=== PATIENT | female | born 1945 | race Caucasian/White ===

== ENCOUNTER 2020-04-04 12:45 | Outpatient (CLI) | payer MEDICARE, SELFPAY ==
--- NOTE | ~2020-04-04 | DEXA_ITS ---
Bone Density Report Name: Carmencita Swanson Age: 74 Sex: Female Ethnicity: White Date of : 1945 Indication: osteopenia; height loss; Referring Provider: Richard Bailey Study: Bone densitometry was performed. Exam Date: April 04, 2020 Accession number: [id number] Bone Density: Region BMD T-score Z-score Classification AP Spine (L1, L2, L3) 0.813 -1.9 0.4 Osteopenia Femoral Neck (Left) 0.541 -2.8 -0.8 Osteoporosis Total Hip (Left) 0.695 -2.0 -0.3 Osteopenia Total Hip Bilateral Avg 0.674 -2.2 -0.5 Osteopenia Femoral Neck (Right) 0.554 -2.7 -0.7 Osteoporosis Total Hip (Right) 0.651 -2.4 -0.7 Osteopenia World Health Organization criteria for BMD impression classify patients as: Normal (T-score at or above -1.0), Osteopenia (T-score between -1.0 and -2.5), or Osteoporosis (T-score at or below -2.5). 10-year Fracture Risk: FRAX not reported because: Some T-score for Spine Total or Hip Total or Femoral Neck at or below -2.5 Previous Exams: Region Exam Age BMD T-score BMD Change BMD Change Date g/cm2 vs Baseline vs Previous AP Spine(L1, L2, L3) 04/04/2020 74 0.813 -1.9 0.028(3.5%)# 0.025(3.2%)* 03/05/2018 72 0.788 -2.1 0.003(0.4%)# 0.000(0.1%) 08/09/2014 68 0.787 -2.1 0.002(0.3%)# 0.010(1.3%)# 06/17/2012 66 0.778 -2.2 -0.007(-1.0%)# -0.007(-1.0%)# 05/15/2010 64 0.785 -2.1 Total Hip(Left) 04/04/2020 74 0.695 -2.0 0.002(0.3%)# -0.032(-4.4%)* 03/05/2018 72 0.727 -1.8 0.034(4.9%)# 0.009(1.3%) 08/09/2014 68 0.718 -1.8 0.025(3.6%)# 0.000(-0.1%)# 06/17/2012 66 0.718 -1.8 0.025(3.7%)# 0.025(3.7%)# 05/15/2010 64 0.693 -2.0 Total Hip(Right) 04/04/2020 74 0.651 -2.4 -0.067(-9.4%)# -0.118(-15.3%) 03/05/2018 72 0.769 -1.4 0.050(7.0%)# 0.035(4.8%)* 08/09/2014 68 0.733 -1.7 0.015(2.1%)# 0.002(0.3%)# 06/17/2012 66 0.731 -1.7 0.013(1.8%)# 0.013(1.8%)# 05/15/2010 64 0.718 -1.8 *Denotes significance at 95% confidence level, LSC for AP Spine = 0.022 g/cm2, LSC for Total Hip = 0.027 g/cm2 Clinical Information Provided by Patient: Has used the following medications: Vitamin D, Calcium Patient maximum height was 63 Menopause Age: 51 Does not regularly consume dairy products Onset of menses at age 19 Number of children 2 Impression: The patient has osteoporosis, based on the Left Femoral Neck T-score. The BMD for the Total Hip(Left) decr
== END 2020-04-04 12:46 | disposition home or self-care (01) ==
PROVIDERS: PCP Family Medicine; Visit Provider Family Medicine
DX: M81.0 Age-related osteoporosis without current pathological fracture (principal)
CPT/HCPCS: 77080

== ENCOUNTER 2020-12-25 07:52 | Outpatient (CLI) | payer MEDICARE, SELFPAY ==
--- NOTE | ~2020-12-25 | MM_ITS ---
EXAMINATION: MM screening mack BI w brenda HISTORY: Screening mammogram TECHNIQUE: Craniocaudal and mediolateral oblique 3-D tomosynthesis images were obtained and synthetic 2-D images were generated. CAD analysis was submitted and interpreted. COMPARISON: 10/08/2018, 09/29/2017, 08/26/2016, 08/13/2015 bilateral digital screening mammogram examinatio ns BREAST PARENCHYMAL COMPOSITION: There are scattered areas of fibroglandular density. FINDINGS: There is no evidence of suspicious mass, calcification, or architectural distortion to sugg est malignancy in either breast. There has been no suspicious interval change. IMPRESSION: 1. No mammographic evidence of malignancy. 2. Recommend routine screening mammography in one year. BI-RADS Category 1: Negative Reviewed, dictated and finalized at location A.
== END 2020-12-25 07:53 | disposition home or self-care (01) ==
LOC: ANHIMG 07:55
PROVIDERS: PCP Family Medicine; Visit Provider Family Medicine
DX: Z12.31 Encounter for screening mammogram for malignant neoplasm of breast (principal)
CPT/HCPCS: 77063; 77067

== ENCOUNTER → 2021-11-15 01:53 | Outpatient (CLI) | payer MEDICARE, SELFPAY ==
[2021-11-15 11:18] LABS: Influenza A QL RT-PCR Negative (Negative); Influenza B QL RT-PCR Negative (Negative); SARS-CoV-2 RNA PCR Negative
== END ==
PROVIDERS: PCP Physician Assistant; Visit Provider Physician Assistant
DX: R05.9 Cough, unspecified (principal); R68.89 Other general symptoms and signs; Z20.822 Contact with and (suspected) exposure to COVID-19
CPT/HCPCS: 87502; C9803; U0003; U0005

== ENCOUNTER 2023-01-01 12:14 | Outpatient (CLI) | payer MEDICARE, SELFPAY ==
--- NOTE | ~2023-01-01 | US_ITS ---
EXAMINATION: US soft tissue head and neck DATE: 01/01/2023 13:04 INDICATION: Right posterior neck mass TECHNIQUE: Multiple grayscale and Doppler ultrasound images of the region of concern at the posterior right neck were obtained. COMPARISON: None FINDINGS/IMPRESSION: Normal-sized 8 x 7 x 4 mm hypoechoic lymph node near the region of concern. No other abnormal masses or fluid collections identified. Reviewed, dictated and finalized at location A.
== END 2023-01-01 12:15 | disposition home or self-care (01) ==
PROVIDERS: PCP Family Medicine; Visit Provider Family Medicine
DX: R22.1 Localized swelling, mass and lump, neck (principal)
CPT/HCPCS: 76536

== ENCOUNTER 2025-02-09 08:35 | Outpatient (CLI) | payer MEDICARE, SELFPAY ==
--- NOTE | ~2025-02-09 | DEXA_ITS ---
Bone Density Report Name: EMILY CORLEY Age: 79 Sex: Female Ethnicity: White Date of : 1945 Indication: osteopenia; Referring Provider: DAISY BRUMFIELD Study: Bone densitometry was performed. Exam Date: February 09, 2025 Accession number: [id number] Bone Density: Region BMD T-score Z-score Classification AP Spine(L1-L4) 0.845 -1.8 0.8 Osteopenia Femoral Neck (Left) 0.515 -3.0 -0.8 Osteoporosis Total Hip (Left) 0.674 -2.2 -0.2 Osteopenia Femoral Neck (Right) 0.580 -2.4 -0.2 Osteopenia Total Hip (Right) 0.663 -2.3 -0.3 Osteopenia Total Hip Mean 0.669 -2.3 -0.3 Osteopenia World Health Organization criteria for BMD impression classify patients as: Normal (T-score at or above -1.0), Osteopenia (T-score between -1.0 and -2.5), or Osteoporosis (T-score at or below -2.5). 10-year Fracture Risk: FRAX not reported because: Some T-score for Spine Total or Hip Total or Femoral Neck at or below -2.5 Previous Exams: Region Exam Age BMD T-score BMD Change BMD Change Date g/cm2 vs Baseline vs Previous AP Spine (L1-L4) 02/09/2025 79 0.845 -1.8 0.049 (6.2%)# 0.018 (2.2%) 03/05/2018 72 0.827 -2.0 0.031 (3.9%)# 0.021 (2.6%) 08/09/2014 68 0.806 -2.2 0.010 (1.3%)# 0.010 (1.3%)# 06/17/2012 66 0.796 -2.3 Total Hip(Left) 02/09/2025 79 0.674 -2.2 -0.045 (-6.2%) -0.021 (-3.1%) 04/04/2020 74 0.695 -2.0 -0.023 (-3.3%) -0.032 (-4.4%) 03/05/2018 72 0.727 -1.8 0.009 (1.2%)# 0.009 (1.3%) 08/09/2014 68 0.718 -1.8 0.000 (-0.1%)# 0.000 (-0.1%)# 06/17/2012 66 0.718 -1.8 Total Hip(Right) 02/09/2025 79 0.663 -2.3 -0.068 (-9.3%) 0.012 (1.9%) 04/04/2020 74 0.651 -2.4 -0.080 (-11.0% -0.118 (-15.3% 03/05/2018 72 0.769 -1.4 0.037 (5.1%)# 0.035 (4.8%)* 08/09/2014 68 0.733 -1.7 0.002 (0.3%)# 0.002 (0.3%)# 06/17/2012 66 0.731 -1.7 *Denotes significance at 95% confidence level, LSC for AP Spine = 0.022 g/cm2, LSC for Total Hip = 0.027 g/cm2 # Denotes dissimilar scan types or analysis methods Clinical Information Provided by Patient: Has used the following medications: Vitamin D, Calcium Patient maximum height was 62 Menopause Age: 51 Onset of menses at age 19 Number of children 2 Impression: The patient has osteoporosis, based on the Left Femoral Neck T-score. No significant bone loss was observed. Discussion: INCREASED RISK OF FRACTURE. BONE DENSITY IS UNDESIRABLY LOW AT ONE OR MORE SKELETAL SITES, CONSISTENT WITH POSTMENOPAUSAL OSTEOPOROSIS. This patient's lowest T-score meets the World Health Organization's (WHO) criteria for osteoporosis at one or more sites (T-score -2.5 or below). In untreated patients, the risk of osteoporotic fracture increases approximately two-fold for each 1.0 SD decrease in T-score. Low bone density is not the only risk factor for fracture; also consider factors such as patient's age, frailty or poor health, risk of falling, risk of injury, previous osteoporotic fracture, family history of osteoporosis, cigarette smoking, low body weight, etc. Not everyone with low bone mineral density has osteoporosis; osteomalacia and other metabolic bone disorders should also be considered. Patients who have osteoporosis should be evaluated for specific diseases and conditions (secondary causes) that may cause or contribute to bone loss. The [place] Association [employer] Endocrinologists (AACE) and National Osteoporosis Foundation (NOF) recommend pharmacologic intervention for all postmenopausal women whose T-score is in this range. The patient should follow a healthful lifestyle (good nutrition with adequate calcium and vitamin D, and appropriate weight-bearing exercise). Follow-Up: Consider a repeat BMD and Vertebral Fracture Assessment (VFA) exam in 2 years or sooner if medically necessary, to reassess this patient's status. Reported by: JA on 02/09/2025 9:18:00 AM. Reviewed, dictated and finalized at location A.
--- NOTE | ~2025-02-09 | MM_ITS ---
EXAMINATION: MM screening mack BI w brenda HISTORY: Screening TECHNIQUE: Craniocaudal and mediolateral oblique 3-D tomosynthesis images were obtained and synthetic 2-D images were generated. CAD analysis was submitted and interpreted. COMPARISON: Comparison to multiple prior studies sequentially, with oldest reviewed study dated 08/26. BREAST PARENCHYMAL COMPOSITION: There are scattered areas of fibroglandular density. FINDINGS: There is no evidence of suspicious mass, calcification, or architectural distortion to sug gest malignancy in either breast. IMPRESSION: 1. No mammographic evidence of malignancy. 2. Recommend routine screening mammography in one year. BI-RADS Category 1: Negative Reviewed, dictated and finalized at location B.
--- OUTSIDE RECORDS SUMMARY | 2025-02-09 08:40 | XMS_ITS | Continuity of Care Document ---
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 Name Role Phone Felipe Kitchen MD Unavailable Unavailable Allergies, Adverse Reactions, Alerts Substance Reaction Status Criticality AMOXICILLIN TRIHYDRATE Other Active No In formation POTASSIUM CLAVULANATE Other Active No Inf ormation Medications Medication Instructions Dosage Effective Dates (start - stop) Status Comments vitamin A 10,000 unit capsule take 3 Capsule ([id number]) by oral route every day 96690 UNITS - Active Vitamin B Complex tablet take 1 a day - Active Vitamin C 500 mg tablet take 1 tablet daily - Active CALCIUM 500 + VIT D CAPLET 2 DAILY - Active OMEGA-3 1,000 MG SOFTGEL 2 DAILY - Active MULTIPLE VITAMIN PLAIN TAB 1 QD-daily - Active Advance Directives Directive Yes / No Effective Date File Name No Information Encounters Encounter Description Practice Location Reason(s) For Visit Diagnoses Date Provider Providers Copied on Encounter [facility], [address], [place], [place], [id number] , [place] tel: [phone] Mikey No Information 5 Imtiaz Wang. [address] [place], [place], [address], [place]. [phone] [facility], [address], [place], [place], [address] , [place] tel: [phone] Mikey Post-menopausal 5 Wiegjose j Gotti. [address] [place], [address], [place]. tel:[phone] [facility], [address], [place], [place], [address] , [place] tel: [phone] [place] Mass of right breast 4 Mishashi Gotti. [address] [place], [address], [place]. tel:[phone] [facility], [address], [place], [place], [address] , [place] tel: [phone] [place] Screening for malignant neoplasm of breast 4 Imtiaz Wang. [address], [place], [address], [place]. tel:[phone] [facility], [address], [place], [place], [address] , [place] tel: [phone] [place] Encounter for Medicare annual wellness examMIXED HYPERLIPIDEMIAMya lgia and myositisOsteopeni a 2 [facility] [address] [place], [address], [place]. tel:[phone] Referring Provider: Felipe Castillo, [address] [place], [address] . tel:[phone] [facility], [address], [place], [place], [address] , [place] tel: [phone] [place] ArthralgiaTick biteBite of nonvenomous arthropod 2 Mishashi Gotti. [address] [place], [address], [place]. tel:[phone] Referring Provider: Felipe Castillo, [address] [place], [address] . tel:[phone] [facility], [address], [place], [place], [address] , [place] tel: [phone] [place] Mixed hyperlipidemiaBON E & CARTILAGE DIS NOS 1 [facility] Mar[facility]. [address] [place], [address], [place]. tel:[phone] Referring Provider: Felipe Castillo, [address] [place], [address] . tel:[phone] [facility], [address], [place], [place], [address] , [place] tel: [phone] Conversion Department No Information 1 Conversion Doctor. [facility] [place], [address], [place]. [facility], [address], [place], [place], [address] , [place] tel: [phone] [place] MIXED HYPERLIPIDEMIALON G-TERM USE MEDS NEC 1 Imtiaz Wang. [address], [place], [address], [place]. 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 [address], [place], [address], [place]. tel:[phone] [facility], [address], [place], [place], [address] , [place] tel: [phone] [place] DVRTCLI COLON W/O HMRHGSCREEN MAL NEOP-RECTUM 6 Imtiaz Wang. [address], [place], [address], [place]. tel:[phone] [facility], [address], [place], [place], [address] , [place] tel: [phone] [place] THROAT PAINESOPHAGEAL REFLUX 0 4 Conversion Doctor. [facility] [place], [address], [place]. [facility], [address], [place], [place], [address] , [place] tel: [phone] [place] BURSITIS NEC 0-200 3 Imtiaz Wang. [address], [place], [address], [place]. [phone] [facility], [address], [place], [place], [address] , [place] tel: [phone] [place] ACUTE SINUSITIS NOS 0200 2 Conversion Doctor. [address] [facility], [place], [address], [place]. Family History Family Member Type Diagnosis Age At Onset Father Problem (finding) Cancer Payers Payer name Insurance type Covered libertarian ID Authoriza tion(s) [place]IC[place] [id number] [facility] [id number] Social History Type Description Quantity Date Captured Comments Alcohol Use Details Unknown Caffeine Use Details Unknown Tobacco Use Status No Information Smoking Status No Information Sex Female Chief Complaint And Reason For Visit No Information Reason For Referral Reason For Referral No Information History Of Present Illness Encounter Date Complaint History Of Prese nt Illness No Information Functional Status Date Functional Assessmen t No Information Instructions Date Instruction Additional Infor mation No Information Assessments Type Assessment Date No Information Patient Care Teams Name Effective Dates (start - stop) Status Members No Information
== END 2025-02-09 08:36 | disposition home or self-care (01) ==
LOC: ANHIMG 08:38
PROVIDERS: PCP Family Medicine; Visit Provider Family Medicine
DX: Z12.31 Encounter for screening mammogram for malignant neoplasm of breast (principal); Z78.0 Asymptomatic menopausal state
CPT/HCPCS: 77063; 77067; 77080